=== PATIENT | male | born 1945 | race Caucasian/White ===

== ENCOUNTER → 2018-04-10 07:55 | Outpatient (CLI) | payer MEDICARE, OTHER, SELFPAY ==
[2018-04-13 17:17] LABS: PSA Post Prostatectomy <0.02 ng/mL
== END ==
PROVIDERS: Visit Provider Nurse Practitioner Family
DX: C61 Malignant neoplasm of prostate (principal)
CPT/HCPCS: 36415; 84153

== ENCOUNTER → 2018-06-01 09:27 | Outpatient (CLI) | payer MEDICARE, OTHER, SELFPAY ==
[2018-06-01 11:36] LABS: Prostate Specific Antigen < 0.064 ng/mL (0.10-4.00)
== END ==
PROVIDERS: Visit Provider Nurse Practitioner Family
DX: C61 Malignant neoplasm of prostate (principal)
CPT/HCPCS: 36415; 84153